=== PATIENT | male | born 1980 | race Caucasian/White ===

== ENCOUNTER 2017-06-24 09:06 | Emergency (ER) | payer SELFPAY ==
[~2017-06-24] VITALS: Ht 172.7 cm; Wt 70.5 kg
[~2017-06-24 09:06] MED LIST: CIPRO500 MG PO; FLEXERIL10 MG PO; HYDROCODON-ACE1 EAC7 PO; NAPROXEN500 MG PO; OMEPRAZOLE40 M1 PO; PERCOCET 5/31 TABLET PO
[2017-06-24] MEDS ORDERED: MOTRIN800 MG PO (11:21)
[2017-06-24] MEDS ORDERED: PERCOCET 5/31 TABLET PO (11:21)
[2017-06-24 12:03] VITALS: BP 161/100
== END 2017-06-24 12:03 | disposition home or self-care (01) ==
LOC: EME 09:06
PROC: 2W3KX1Z Immobilization of Left Finger using Splint (ICD-10-PCS; principal; 2017-06-24)
PROC: 0HQGXZZ Repair Left Hand Skin, External Approach (ICD-10-PCS; principal; 2017-06-24)
DX: S62.631B Displaced fracture of distal phalanx of left index finger, initial encounter for open fracture (principal); S67.191A Crushing injury of left index finger, initial encounter; W23.0XXA Caught, crushed, jammed, or pinched between moving objects, initial encounter; F17.200 Nicotine dependence, unspecified, uncomplicated
CPT/HCPCS: 73140; 99281; 99284; S0020

== ENCOUNTER 2017-07-08 09:13 | Day surgery (SDC) | payer OTHER ==
[~2017-07-08] VITALS: Ht 170.2 cm; Wt 70.0 kg
[~2017-07-08 09:13] MED LIST changes: +MOTRIN800 MG PO
[2017-07-08 10:07] VITALS: BP 140/92
[2017-07-08 13:40] VITALS: BP 131/62
[2017-07-08 14:13] VITALS: BP 143/76
== END 2017-07-08 14:14 | disposition home or self-care (01) ==
LOC: SDC 09:13
DX: S62.631A Displaced fracture of distal phalanx of left index finger, initial encounter for closed fracture (principal); S61.311A Laceration without foreign body of left index finger with damage to nail, initial encounter; W23.1XXA Caught, crushed, jammed, or pinched between stationary objects, initial encounter; F17.200 Nicotine dependence, unspecified, uncomplicated
CPT/HCPCS: J0690; J1100; J1170; J2250; J2405; J3010

== ENCOUNTER 2017-07-19 03:06 | Emergency (ER) | payer OTHER ==
[~2017-07-19] VITALS: Ht 170.2 cm; Wt 72.1 kg
[2017-07-19 03:35] LABS: HEMATOCRIT 45.9 % (38.0-50.0); MCH 32.9 PG (29.0-34.0); MCHC 34.9 G/DL (30.0-36.0); MCV 94.3 FL (86-99); PLATELET COUNT 185 K/uL (156-360); RBC DIS.WIDTH-CV 12.2 % (11.8-14.6); RBC DIS.WIDTH-SD 42.5 % (39-53); RED BLOOD COUNT 4.87 M/uL (4.00-5.50); WHITE BLOOD COUNT 6.6 K/uL (4.1-10.2)
[2017-07-19 03:47] LABS: ALBUMIN 4.4 g/dL (3.2-4.8); CHLORIDE 106 mEq/L (99-109); POTASSIUM 3.7 mEq/L (3.7-5.4); SODIUM 139 mEq/L (136-147)
[2017-07-19 03:49] LABS: GLUCOSE 97 mg/dL (70-99); TOTAL PROTEIN 7.3 g/dL (6.4-8.3)
[2017-07-19 03:53] LABS: ALKALINE PHOSPHATASE 37 IU/L (3-129); CREATININE 0.8 mg/dL (0.6-1.3); GFR ESTIMATE (CALCULATED) > 59 mL/min/ (58.99-99999)
[2017-07-19 03:54] LABS: UREA NITROGEN (BUN) 12 mg/dL (9-23)
[2017-07-19 03:55] LABS: AST (GOT) 39 IU/L (2-34)
[2017-07-19 03:56] LABS: ALT (GPT) 39 IU/L (3-49)
[2017-07-19] MEDS ORDERED: NORCO 5/3251 TABLET PO (06:16)
[2017-07-19 06:28] VITALS: BP 141/95
[2017-07-19] MEDS ORDERED: PEN-VEE K,VEET500 MG PO (06:41)
== END 2017-07-19 06:54 | disposition home or self-care (01) ==
LOC: EME → EDBD 03:06 → TRA 03:06
PROVIDERS: Emergency Medicine
PROC: 2W3QXYZ Immobilization of Right Lower Leg using Other Device (ICD-10-PCS; principal; 2017-07-19)
PROC: 0HQ1XZZ Repair Face Skin, External Approach (ICD-10-PCS; principal; 2017-07-19)
DX: S01.81XA Laceration without foreign body of other part of head, initial encounter (principal); S80.01XA Contusion of right knee, initial encounter; S02.2XXA Fracture of nasal bones, initial encounter for closed fracture; F17.200 Nicotine dependence, unspecified, uncomplicated; K08.89 Other specified disorders of teeth and supporting structures; V09.9XXA Pedestrian injured in unspecified transport accident, initial encounter
CPT/HCPCS: 70450; 70486; 71010; 72125; 73564; 80053; 85027; 99281; 99284; J2270; J2405